=== PATIENT | female | born 1980 | race Two or more races ===

== ENCOUNTER → 2020-05-03 08:17 | Outpatient (CLI) | payer OTHER | END | disposition home or self-care (01) | LOC: LAB 08:17 → EDBD 08:17 → LAB 16:04 | PROVIDERS: ATTEND Obstetrics & Gynecology | DX: Z34.00 Encounter for supervision of normal first pregnancy, unspecified trimester (principal); A92.8 Other specified mosquito-borne viral fevers ==

== ENCOUNTER 2020-05-03 08:31 | Outpatient (CLI) | payer OTHER | END 2020-05-03 09:28 | disposition home or self-care (01) | LOC: MAMO-SONO 08:31 → EDBD 08:31 → MAMO-SONO 08:45 | PROVIDERS: ATTEND Obstetrics & Gynecology | DX: Z12.31 Encounter for screening mammogram for malignant neoplasm of breast (principal); N60.11 Diffuse cystic mastopathy of right breast; N60.12 Diffuse cystic mastopathy of left breast; N85.2 Hypertrophy of uterus ==

== ENCOUNTER 2020-05-08 12:42 | Outpatient (CLI) | payer OTHER | END 2020-05-08 12:50 | disposition home or self-care (01) | LOC: RAD 12:42 | PROVIDERS: ATTEND Orthopaedic Surgery | DX: M25.572 Pain in left ankle and joints of left foot (principal) ==

== ENCOUNTER → 2020-11-07 07:00 | Outpatient (CLI) | payer OTHER | END | disposition home or self-care (01) | LOC: LAB 07:00 | PROVIDERS: ATTEND Obstetrics & Gynecology | DX: N92.1 Excessive and frequent menstruation with irregular cycle (principal) ==

== ENCOUNTER 2020-11-07 14:16 | Outpatient (CLI) | payer OTHER | END 2020-11-07 14:28 | disposition HB | LOC: SONOGRAMA 14:16 | PROVIDERS: ATTEND Obstetrics & Gynecology | DX: N94.89 Other specified conditions associated with female genital organs and menstrual cycle (principal) ==

== ENCOUNTER → 2021-03-15 | Outpatient (CLI) | payer OTHER | END | disposition home or self-care (01) | LOC: RX STUDY 10:15 | PROVIDERS: ATTEND Obstetrics & Gynecology Reproductive Endocrinology | DX: N94.89 Other specified conditions associated with female genital organs and menstrual cycle (principal) ==

== ENCOUNTER 2022-06-30 21:35 | Emergency (ER) | payer OTHER ==
[~2022-06-30] VITALS: Ht 152.4 cm; Wt 59.0 kg
[2022-06-30] MEDS ORDERED: SYNTHROID150 MCG PO (21:41)
[2022-06-30] MEDS ORDERED: PROGESTERONE100 M1 VAG (21:42)
[2022-06-30] MEDS ORDERED: CLIMARA1 EAC2 (21:43)
== END 2022-07-01 03:14 ==
LOC: ER 21:35
DX: O20.0 Threatened abortion (principal); E03.9 Hypothyroidism, unspecified

== ENCOUNTER 2022-12-22 18:24 | Inpatient (IN) | payer OTHER ==
[~2022-12-22] VITALS: Ht 152.4 cm; Wt 69.9 kg
[~2022-12-22 18:24] MED LIST: CLIMARA1 EAC2; PROGESTERONE100 M1 VAG; SYNTHROID150 MCG PO
[2022-12-22] MEDS ORDERED: PRENATAL + DHA1 EAC1 PO (21:52)
[2022-12-22] MEDS ORDERED: CHILDREN'S ASPI81 MG PO (21:52)
[2022-12-22] MEDS ORDERED: [UNRECOGNIZED DRUG - OTHER] PO (21:53)
[2022-12-23] MEDS ORDERED: CONCEPT DHA CA1 EACH (14:33)
[2022-12-23] MEDS ORDERED: MAGNESIUM200 MG (14:34)
== END 2022-12-24 09:40 | disposition home or self-care (01) | DRG 833 ==
LOC: OB/GYN 18:24 → LDR 18:24 → OB/GYN 12-23 08:32
PROVIDERS: ADMIT Obstetrics & Gynecology; ATTEND Obstetrics & Gynecology
PROC: BY4FZZZ Ultrasonography of Third Trimester, Single Fetus (ICD-10-PCS; principal; 2022-12-22)
PROC: 4A1HXCZ Monitoring of Products of Conception, Cardiac Rate, External Approach (ICD-10-PCS; 2022-12-22)
DX: O47.03 False labor before 37 completed weeks of gestation, third trimester (principal); Z3A.31 31 weeks gestation of pregnancy; Z20.822 Contact with and (suspected) exposure to COVID-19

== ENCOUNTER 2023-01-22 19:39 | Inpatient (IN) | payer OTHER ==
[~2023-01-22] VITALS: Ht 152.4 cm; Wt 74.8 kg
[~2023-01-22 19:39] MED LIST changes: +CHILDREN'S ASPI81 MG PO; +CONCEPT DHA CA1 EACH; +MAGNESIUM200 MG; +PRENATAL + DHA1 EAC1 PO; +[UNRECOGNIZED DRUG - OTHER] PO
[2023-01-23] MEDS ORDERED: NIFEDIPINE ER30 M1 (08:13)
== END 2023-01-24 10:24 | disposition home or self-care (01) | DRG 833 ==
LOC: LDR 19:39
PROVIDERS: ADMIT Obstetrics & Gynecology Gynecology; ATTEND Obstetrics & Gynecology Gynecology
PROC: 4A1HXCZ Monitoring of Products of Conception, Cardiac Rate, External Approach (ICD-10-PCS; principal; 2023-01-22)
PROC: BY4FZZZ Ultrasonography of Third Trimester, Single Fetus (ICD-10-PCS; 2023-01-23)
DX: O60.03 Preterm labor without delivery, third trimester (principal); Z3A.36 36 weeks gestation of pregnancy; Z20.822 Contact with and (suspected) exposure to COVID-19

== ENCOUNTER 2023-01-28 12:04 | Inpatient (IN) | payer OTHER ==
[~2023-01-28] VITALS: Ht 152.4 cm; Wt 75.3 kg
[~2023-01-28 12:04] MED LIST changes: +NIFEDIPINE ER30 M1
== END 2023-02-03 09:26 | disposition home or self-care (01) | DRG 833 ==
LOC: LDR 02-02 20:40 → OB/GYN 02-19 11:57
PROVIDERS: ADMIT Obstetrics & Gynecology Gynecology; ATTEND Obstetrics & Gynecology Gynecology
PROC: 4A1HXCZ Monitoring of Products of Conception, Cardiac Rate, External Approach (ICD-10-PCS; principal; 2023-02-02)
DX: O47.1 False labor at or after 37 completed weeks of gestation (principal); Z3A.37 37 weeks gestation of pregnancy; Z20.822 Contact with and (suspected) exposure to COVID-19

== ENCOUNTER 2023-02-06 12:32 | Outpatient (CLI) | payer OTHER | END 2023-02-06 13:06 | disposition home or self-care (01) | LOC: NST 12:32 | PROVIDERS: ATTEND Obstetrics & Gynecology Gynecology | DX: Z34.83 Encounter for supervision of other normal pregnancy, third trimester (principal) ==

== ENCOUNTER 2023-02-12 08:20 | Inpatient (IN) | payer OTHER ==
[~2023-02-12] VITALS: Ht 152.4 cm; Wt 3.6 kg
== END 2023-02-15 15:06 | disposition home or self-care (01) | DRG 788 ==
LOC: LDR 08:20 → O/R 16:52 → OB/GYN 21:30
PROVIDERS: ADMIT Obstetrics & Gynecology; ATTEND Obstetrics & Gynecology
PROC: 4A1HXCZ Monitoring of Products of Conception, Cardiac Rate, External Approach (ICD-10-PCS; 2023-02-12)
PROC: 10D00Z1 Extraction of Products of Conception, Low, Open Approach (ICD-10-PCS; principal; 2023-02-12 16:30)
DX: O62.1 Secondary uterine inertia (principal); Z3A.39 39 weeks gestation of pregnancy; Z37.0 Single live birth; Z20.822 Contact with and (suspected) exposure to COVID-19